=== PATIENT | female | born 1980 | race Caucasian/White ===

== ENCOUNTER 2017-12-22 01:17 | Inpatient (IN) | payer OTHER ==
[~2017-12-22] VITALS: Ht 154.9 cm; Wt 49.1 kg
[2017-12-22 03:29] LABS: PLATELET COUNT 357 x10^3mcL (130-400); RED CELL DISTRIBUTION WIDTH 11.7 % (11.5-14.5)
[2017-12-22 03:35] LABS: CALCIUM 9.3 mg/dL (8.5-10.1); CARBON DIOXIDE 28.7 mmol/L (21-32); CHLORIDE SERUM 98 mmol/L (98-107); CREATININE SERUM 0.9 mg/dL (0.6-1.0); GFR1 > 60 mL/min; GLUCOSE SERUM 104 mg/dL (74-106); POTASSIUM SERUM 3.1 mmol/L (3.5-5.1); SODIUM SERUM 138 mmol/L (136-145)
[2017-12-22 03:40] LABS: ALBUMIN 3.8 g/dL (3.4-5.0); ALKALINE PHOSPHATASE 84 U/L (46-116); ALT/SGPT 21 U/L (14-59); AST/SGOT 25 U/L (15-37); BILIRUBIN TOTAL 0.63 mg/dL (0.20-1.00); TOTAL PROTEIN, SERUM 7.8 g/dL (6.4-8.2)
[2017-12-22 04:00] LABS: BAND NEUTROPHIL 2 % (0-10); MONOCYTE 3 % (0-7); SEGMENTED NEUTROPHILS 80 % (37-75)
[2017-12-22 04:03] LABS: rbc morphology (normal/abnorm) ABNORMAL (NORMAL)
[2017-12-22 07:31] LABS: UA SPECIFIC GRAVITY >=1.030 (1.005-1.035); microscopic required? YES; urine erythrocyte NEGATIVE (NEGATIVE)
[2017-12-22 07:47] LABS: AMPHETAMINE QUAL UR NONE DETECTED (See below)
[2017-12-23] MEDS ORDERED: ALDACTONE50 MG PO (09:23)
[2017-12-23] MEDS ORDERED: NIKKI1 TAB PO (09:23)
[2017-12-23] MEDS ORDERED: KLONOPIN1 MG PO (09:23)
[2017-12-23] MEDS ORDERED: ADDERALL10 MG PO (09:23)
[2017-12-23] MEDS ORDERED: TIZANIDINE HCL4 MG PO (09:24)
[2017-12-23] MEDS ORDERED: WAL-ZYR10 M1 PO (09:24)
[2017-12-23] MEDS ORDERED: WELLBUTRIN XL300 M1 PO (09:24)
[2017-12-23 10:37] VITALS: BP 139/88
[2017-12-23 13:00] VITALS: BP 132/82
[2017-12-23 16:46] VITALS: BP 115/70; BP 137/82
[2017-12-23 20:34] VITALS: BP 105/68
[2017-12-23 21:54] VITALS: Ht 154.9 cm; Wt 49.1 kg
[2017-12-24 05:48] VITALS: BP 138/74
[2017-12-24] MEDS ORDERED: WEL75 PO (12:19)
[2017-12-24 13:53] VITALS: BP 132/96
[2017-12-24 18:21] VITALS: BP 127/75
[2017-12-24 19:51] VITALS: BP 144/97
[2017-12-25 06:26] VITALS: BP 118/83
[2017-12-25 08:34] VITALS: BP 146/86
[2017-12-25 09:35] VITALS: BP 146/86
== END 2017-12-25 20:45 | disposition left against medical advice (07) | DRG 73 ==
LOC: ED 01:17 → DU 09:11 → MU 09:11 → DU 12-23 10:29 → MU 12-25 13:14
PROVIDERS: Emergency Medicine
DX: G90.8 Other disorders of autonomic nervous system (principal); N17.0 Acute kidney failure with tubular necrosis; R41.82 Altered mental status, unspecified; E87.6 Hypokalemia; R80.9 Proteinuria, unspecified; L55.9 Sunburn, unspecified; F32.9 Major depressive disorder, single episode, unspecified; F41.9 Anxiety disorder, unspecified; Z68.20 Body mass index [BMI] 20.0-20.9, adult
CPT/HCPCS: G0480; J2060; J2405; J7030; Q0092; Q0162; Q0164

== ENCOUNTER 2017-12-27 14:10 | Inpatient (IN) | payer OTHER ==
[~2017-12-27] VITALS: Ht 165.1 cm; Wt 53.4 kg
[~2017-12-27 14:10] MED LIST: ADDERALL10 MG PO; ALDACTONE50 MG PO; KLONOPIN1 MG PO; NIKKI1 TAB PO; TIZANIDINE HCL4 MG PO; WAL-ZYR10 M1 PO; WEL75 PO; WELLBUTRIN XL300 M1 PO
[2017-12-27 14:58] LABS: BASOPHIL % 0.3 % (0-2); PLATELET COUNT 368 x10^3mcL (130-400); RED CELL DISTRIBUTION WIDTH 12.2 % (11.5-14.5)
[2017-12-27 15:10] LABS: CALCIUM 9.7 mg/dL (8.5-10.1); CARBON DIOXIDE 17.9 mmol/L (21-32); CHLORIDE SERUM 102 mmol/L (98-107); CREATININE SERUM 1.6 mg/dL (0.6-1.0); GFR1 38 mL/min; GLUCOSE SERUM 246 mg/dL (74-106); POTASSIUM SERUM 3.4 mmol/L (3.5-5.1); SODIUM SERUM 142 mmol/L (136-145)
[2017-12-27 15:15] LABS: ALBUMIN 3.7 g/dL (3.4-5.0); ALKALINE PHOSPHATASE 83 U/L (46-116); ALT/SGPT 39 U/L (14-59); AST/SGOT 27 U/L (15-37); BILIRUBIN TOTAL 0.45 mg/dL (0.20-1.00); TOTAL PROTEIN, SERUM 7.5 g/dL (6.4-8.2)
[2017-12-27 17:58] LABS: AMPHETAMINE QUAL UR POSITIVE (See below)
[2017-12-27 18:12] VITALS: BP 74/41
[2017-12-27 20:05] VITALS: BP 88/58
[2017-12-27 20:21] VITALS: BP 88/58
[2017-12-27 20:42] VITALS: BP 85/52
[2017-12-27 20:43] LABS: UA SPECIFIC GRAVITY >=1.030 (1.005-1.035); microscopic required? YES; urine erythrocyte 1+ (NEGATIVE)
[2017-12-27 20:56] LABS: T3 TOTAL 2.13 ng/mL
[2017-12-27 20:59] LABS: FREE T4 2.09 ng/dL (0.76-1.46); FREE THYROXINE INDEX 4.1 ug/dL (1.4-4.5); T4(THYROXINE) 12.9 ug/dL (4.7-13.3)
[2017-12-27 21:38] LABS: MAGNESIUM 2.8 mg/dL (1.8-2.4); PHOSPHOROUS 4.2 mg/dL (2.5-4.9)
[2017-12-27 21:39] LABS: CHOLESTEROL/HDL RATIO 3.4
[2017-12-27 22:32] VITALS: BP 124/82
[2017-12-27 23:35] VITALS: BP 117/78
[2017-12-28] VITALS (17 sets, daily range): BP systolic 83–127; BP diastolic 48–94
[2017-12-28 06:02] LABS: BASOPHIL % 0 % (0-2); PLATELET COUNT 294 x10^3mcL (130-400); RED CELL DISTRIBUTION WIDTH 12.1 % (11.5-14.5)
[2017-12-28 06:04] LABS: CALCIUM 7.2 mg/dL (8.5-10.1); CARBON DIOXIDE 26.9 mmol/L (21-32); CHLORIDE SERUM 109 mmol/L (98-107); GFR1 > 60 mL/min; GLUCOSE SERUM 154 mg/dL (74-106); MAGNESIUM 2.1 mg/dL (1.8-2.4); PHOSPHOROUS 3.2 mg/dL (2.5-4.9); POTASSIUM SERUM 3.4 mmol/L (3.5-5.1); SODIUM SERUM 142 mmol/L (136-145)
[2017-12-28 06:10] LABS: AMYLASE 345 U/L (25-115)
[2017-12-29] VITALS (18 sets, daily range): BP systolic 90–126; BP diastolic 50–70
[2017-12-29 05:23] LABS: BASOPHIL % 0.7 % (0-2); PLATELET COUNT 198 x10^3mcL (130-400); RED CELL DISTRIBUTION WIDTH 12.7 % (11.5-14.5)
[2017-12-29 05:34] LABS: CALCIUM 7.9 mg/dL (8.5-10.1); CARBON DIOXIDE 25.7 mmol/L (21-32); CHLORIDE SERUM 112 mmol/L (98-107); CREATININE SERUM 0.7 mg/dL (0.6-1.0); GFR1 > 60 mL/min; GLUCOSE SERUM 110 mg/dL (74-106); MAGNESIUM 1.9 mg/dL (1.8-2.4); POTASSIUM SERUM 4.7 mmol/L (3.5-5.1); SODIUM SERUM 139 mmol/L (136-145)
[2017-12-29 05:36] LABS: ALBUMIN 1.9 g/dL (3.4-5.0)
[2017-12-30] VITALS (18 sets, daily range): BP systolic 99–142; BP diastolic 47–78
[2017-12-30 05:11] LABS: BASOPHIL % 0.8 % (0-2); PLATELET COUNT 193 x10^3mcL (130-400); RED CELL DISTRIBUTION WIDTH 12.6 % (11.5-14.5)
[2017-12-30 05:38] LABS: CALCIUM 7.5 mg/dL (8.5-10.1); CARBON DIOXIDE 26.3 mmol/L (21-32); CHLORIDE SERUM 109 mmol/L (98-107); CREATININE SERUM 0.7 mg/dL (0.6-1.0); GFR1 > 60 mL/min; GLUCOSE SERUM 97 mg/dL (74-106); MAGNESIUM 1.4 mg/dL (1.8-2.4); PHOSPHOROUS 2.3 mg/dL (2.5-4.9); SODIUM SERUM 139 mmol/L (136-145)
[2017-12-30 05:40] LABS: ALBUMIN 1.8 g/dL (3.4-5.0)
[2017-12-31] VITALS (20 sets, daily range): BP systolic 96–157; BP diastolic 38–83
[2017-12-31 05:07] LABS: BASOPHIL % 0.5 % (0-2); PLATELET COUNT 196 x10^3mcL (130-400); RED CELL DISTRIBUTION WIDTH 12.3 % (11.5-14.5)
[2017-12-31 05:19] LABS: CALCIUM 7.6 mg/dL (8.5-10.1); CARBON DIOXIDE 26.1 mmol/L (21-32); CHLORIDE SERUM 103 mmol/L (98-107); CREATININE SERUM 0.6 mg/dL (0.6-1.0); GFR1 > 60 mL/min; GLUCOSE SERUM 85 mg/dL (74-106); MAGNESIUM 1.5 mg/dL (1.8-2.4); PHOSPHOROUS 1.8 mg/dL (2.5-4.9); SODIUM SERUM 136 mmol/L (136-145)
[2018-01-01] VITALS (14 sets, daily range): BP systolic 91–136; BP diastolic 56–89
[2018-01-01 05:39] LABS: BASOPHIL % 0.2 % (0-2); PLATELET COUNT 255 x10^3mcL (130-400); RED CELL DISTRIBUTION WIDTH 11.8 % (11.5-14.5)
[2018-01-01 05:54] LABS: CALCIUM 7.3 mg/dL (8.5-10.1); CARBON DIOXIDE 24.1 mmol/L (21-32); CHLORIDE SERUM 102 mmol/L (98-107); CREATININE SERUM 0.5 mg/dL (0.6-1.0); GFR1 > 60 mL/min; GLUCOSE SERUM 110 mg/dL (74-106); MAGNESIUM 1.6 mg/dL (1.8-2.4); PHOSPHOROUS 2.6 mg/dL (2.5-4.9); POTASSIUM SERUM 3.2 mmol/L (3.5-5.1); SODIUM SERUM 137 mmol/L (136-145)
[2018-01-02 04:00] VITALS: BP 127/69
[2018-01-02 04:26] LABS: CK-BB 0 % (0); CK-MB 0 % (0-3); CK-MM 100 % (97-100); MACRO TYPE 1 0 % (Not Observed); MACRO TYPE 2 0 % (Not Observed)
[2018-01-02 05:18] VITALS: BP 154/94
[2018-01-02 05:47] LABS: AMYLASE 55 U/L (25-115); CARBON DIOXIDE 23.9 mmol/L (21-32); CHLORIDE SERUM 102 mmol/L (98-107); CREATININE SERUM 0.5 mg/dL (0.6-1.0); GFR1 > 60 mL/min; GLUCOSE SERUM 68 mg/dL (74-106); LIPASE 203 IU/L (73-393); MAGNESIUM 1.6 mg/dL (1.8-2.4); POTASSIUM SERUM 3.5 mmol/L (3.5-5.1); SODIUM SERUM 136 mmol/L (136-145)
[2018-01-02 05:49] LABS: BASOPHIL % 0.4 % (0-2); PLATELET COUNT 296 x10^3mcL (130-400); RED CELL DISTRIBUTION WIDTH 12.4 % (11.5-14.5)
[2018-01-02 08:00] VITALS: BP 112/63
[2018-01-02 12:18] VITALS: BP 126/64
[2018-01-02 15:23] VITALS: BP 113/63
[2018-01-02 19:51] VITALS: BP 113/88
[2018-01-03 00:03] VITALS: BP 122/60
[2018-01-03 03:45] VITALS: BP 106/62
[2018-01-03 05:41] LABS: BASOPHIL % 0.4 % (0-2); PLATELET COUNT 359 x10^3mcL (130-400); RED CELL DISTRIBUTION WIDTH 12.6 % (11.5-14.5)
[2018-01-03 05:51] LABS: CALCIUM 8.4 mg/dL (8.5-10.1); CARBON DIOXIDE 30.8 mmol/L (21-32); CHLORIDE SERUM 102 mmol/L (98-107); CREATININE SERUM 0.6 mg/dL (0.6-1.0); GFR1 > 60 mL/min; GLUCOSE SERUM 122 mg/dL (74-106); MAGNESIUM 1.8 mg/dL (1.8-2.4); PHOSPHOROUS 3.6 mg/dL (2.5-4.9); POTASSIUM SERUM 3.4 mmol/L (3.5-5.1); SODIUM SERUM 136 mmol/L (136-145)
[2018-01-03 07:55] VITALS: BP 110/58
[2018-01-03 10:29] LABS: AMYLASE 82 U/L (25-115); LIPASE 498 IU/L (73-393)
[2018-01-03 11:10] VITALS: BP 116/73
[2018-01-03 16:53] VITALS: BP 101/66
[2018-01-03 19:38] VITALS: BP 110/62
[2018-01-03 22:54] VITALS: Ht 165.1 cm; Wt 53.4 kg
[2018-01-04 05:43] VITALS: BP 149/80
[2018-01-04 06:40] LABS: BASOPHIL % 0.5 % (0-2); RED CELL DISTRIBUTION WIDTH 12.1 % (11.5-14.5)
[2018-01-04 06:46] LABS: PLATELET COUNT 515 x10^3mcL (130-400)
[2018-01-04 06:49] LABS: CARBON DIOXIDE 28.8 mmol/L (21-32); CHLORIDE SERUM 100 mmol/L (98-107); CREATININE SERUM 0.5 mg/dL (0.6-1.0); GFR1 > 60 mL/min; GLUCOSE SERUM 89 mg/dL (74-106); MAGNESIUM 1.9 mg/dL (1.8-2.4); PHOSPHOROUS 4.7 mg/dL (2.5-4.9); POTASSIUM SERUM 3.3 mmol/L (3.5-5.1); SODIUM SERUM 136 mmol/L (136-145)
[2018-01-04 09:58] VITALS: BP 113/66
[2018-01-04 12:50] VITALS: BP 109/66
[2018-01-04 16:43] VITALS: BP 107/67
[2018-01-04 19:55] VITALS: BP 119/73
[2018-01-05 05:58] VITALS: BP 113/67
[2018-01-05 08:44] VITALS: BP 115/65
[2018-01-05 08:48] VITALS: BP 113/67
[2018-01-05 11:47] VITALS: BP 112/73
[2018-01-05 17:23] VITALS: BP 122/85
[2018-01-05 21:12] VITALS: BP 110/75
[2018-01-06 06:25] LABS: BASOPHIL % 0.5 % (0-2); RED CELL DISTRIBUTION WIDTH 12.3 % (11.5-14.5)
[2018-01-06 06:44] LABS: CALCIUM 8.2 mg/dL (8.5-10.1); CARBON DIOXIDE 30.6 mmol/L (21-32); CHLORIDE SERUM 102 mmol/L (98-107); CREATININE SERUM 0.6 mg/dL (0.6-1.0); GFR1 > 60 mL/min; GLUCOSE SERUM 83 mg/dL (74-106); MAGNESIUM 1.9 mg/dL (1.8-2.4); POTASSIUM SERUM 3.6 mmol/L (3.5-5.1); SODIUM SERUM 140 mmol/L (136-145)
[2018-01-06 06:48] VITALS: BP 105/71
[2018-01-06 07:56] LABS: PLATELET COUNT 525 x10^3mcL (130-400)
[2018-01-06 08:33] VITALS: BP 112/75
[2018-01-06 12:13] VITALS: BP 104/64
[2018-01-06 16:23] VITALS: BP 118/76
[2018-01-06 19:34] VITALS: BP 109/68
[2018-01-07 09:45] VITALS: BP 115/61
[2018-01-07 18:02] VITALS: BP 101/61
[2018-01-07 21:45] VITALS: BP 110/69
[2018-01-08 05:29] VITALS: BP 115/62
[2018-01-08 06:03] VITALS: BP 115/62
[2018-01-08 12:48] VITALS: BP 109/75
[2018-01-08 17:15] VITALS: BP 119/77
[2018-01-08 19:56] VITALS: BP 115/56
[2018-01-09 04:44] VITALS: BP 111/53
[2018-01-09 17:58] VITALS: BP 111/53
== END 2018-01-09 19:06 | DRG 870 ==
LOC: ED 14:10 → IC 18:19 → DU 18:19 → IC 20:05 → DU 01-03 21:38
PROVIDERS: Emergency Medicine; Family Medicine; Internal Medicine
PROC: 5A1955Z Respiratory Ventilation, Greater than 96 Consecutive Hours (ICD-10-PCS; principal; 2017-12-27)
PROC: 0BH17EZ Insertion of Endotracheal Airway into Trachea, Via Natural or Artificial Opening (ICD-10-PCS; 2017-12-27)
PROC: 05HM33Z Insertion of Infusion Device into Right Internal Jugular Vein, Percutaneous Approach (ICD-10-PCS; 2017-12-27)
PROC: B543ZZA Ultrasonography of Right Jugular Veins, Guidance (ICD-10-PCS; 2017-12-27)
PROC: 5A12012 Performance of Cardiac Output, Single, Manual (ICD-10-PCS; 2017-12-27)
DX: A41.9 Sepsis, unspecified organism (principal); J96.01 Acute respiratory failure with hypoxia; J69.0 Pneumonitis due to inhalation of food and vomit; I46.8 Cardiac arrest due to other underlying condition; G92 Toxic encephalopathy; K85.30 Drug induced acute pancreatitis without necrosis or infection; N17.0 Acute kidney failure with tubular necrosis; E43 Unspecified severe protein-calorie malnutrition; R65.21 Severe sepsis with septic shock; G93.1 Anoxic brain damage, not elsewhere classified; F20.0 Paranoid schizophrenia; T43.292A Poisoning by other antidepressants, intentional self-harm, initial encounter; T43.621A Poisoning by amphetamines, accidental (unintentional), initial encounter; G25.3 Myoclonus; F25.0 Schizoaffective disorder, bipolar type; F15.10 Other stimulant abuse, uncomplicated; F14.10 Cocaine abuse, uncomplicated; R80.9 Proteinuria, unspecified; E83.41 Hypermagnesemia; E87.6 Hypokalemia; Z68.21 Body mass index [BMI] 21.0-21.9, adult; Y92.039 Unspecified place in apartment as the place of occurrence of the external cause
CPT/HCPCS: 36556; 36600; 83880; 84439; 97116-GP; 97530-GP; A4628; C9113; G0480; J0461; J0696; J1165; J1630; J1642; J1644; J1940; J1953; J1956; J2060; J2250; J2270; J2543; J2704; J3010; J3475; J3480; J3490; J7030; J7040; J7620; Q0092; Q0162; Q0163; Q9967